=== PATIENT | female | born 1960 | race Caucasian/White ===

== ENCOUNTER 2017-06-05 09:49 | Outpatient (CLI) | payer BC ==
[2017-06-05 10:53] LABS: THYROID STIMULATING HORMONE 0.9 uIU/mL (0.34-5.60)
[2017-06-05 10:55] LABS: FREE T4 (FREE THYROXINE) 0.66 ng/dL (0.58-1.64)
[2017-06-08 08:48] LABS: HEPATITIS C ANTIBODY NON-REACTIVE (NON-REACTIVE)
== END 2017-06-05 09:50 | disposition home or self-care (01) ==
LOC: LAB 09:49
PROVIDERS: ATTEND Naturopath
DX: Z00.01 Encounter for general adult medical examination with abnormal findings (principal); E03.9 Hypothyroidism, unspecified
CPT/HCPCS: 36415; 83615; 84439; 84443; 84481; 86376; 86800; 86803

== ENCOUNTER 2019-03-11 11:52 | Outpatient (CLI) | payer BC ==
[2019-03-11 12:06] LABS: BASOPHILS % (AUTO) 0.7 %; HGB - HEMOGLOBIN 14.8 g/dL (12.0-16.0); LYMPHOCYTES # (AUTO) 1.4 10^3/uL (1.5-3.5); LYMPHOCYTES % (AUTO) 32.7 %; MEAN CORPUSCULAR HGB CONC 33.1 g/dL (32.0-36.0); MEAN CORPUSCULAR VOLUME 93.7 fL (81.0-99.0); MEAN PLATELET VOLUME 10.4 fL (7.9-10.8); MONOCYTES # (AUTO) 0.4 10^3/uL (0.0-1.0); MONOCYTES % (AUTO) 10.2 %; NEUTROPHILS # (AUTO) 2.3 10^3/uL (1.5-6.6); NEUTROPHILS % (AUTO) 55.2 %; PLT - PLATELET COUNT 269 10^3/uL (130-450); RED BLOOD COUNT 4.77 10^6/uL (4.20-5.40); RED CELL DISTRIBUTION WIDTH 11.4 % (12.0-15.0); WHITE BLOOD COUNT 4.1 x10^3/uL (4.8-10.8)
[2019-03-11 12:19] LABS: ALBUMIN 4.8 g/dL (3.2-5.5); ALBUMIN/GLOBULIN RATIO 1.8 (1.0-2.2); CALCIUM 9.7 mg/dL (8.5-10.3); CREATININE 0.6 mg/dL (0.4-1.0); TOTAL PROTEIN 7.5 g/dL (6.7-8.2)
[2019-03-11 12:36] LABS: THYROID STIMULATING HORMONE < 0.08 uIU/mL (0.34-5.60)
[2019-03-11 12:40] LABS: FREE T4 (FREE THYROXINE) 0.76 ng/dL (0.58-1.64)
== END 2019-03-11 11:53 | disposition home or self-care (01) ==
LOC: LAB 11:52
PROVIDERS: ATTEND Naturopath
DX: E03.9 Hypothyroidism, unspecified (principal)
CPT/HCPCS: 36415; 80053; 84439; 84443; 85025

== ENCOUNTER 2019-04-21 10:11 | Outpatient (CLI) | payer BC ==
[2019-04-21 11:03] LABS: HB2 TOTAL 14.4 g/dL; HEMOGLOBIN A1C 0.49 g/dL; HEMOGLOBIN A1C % 5.3 % (4.6-6.2)
[2019-04-21 11:04] LABS: CHOL/HDL RATIO 4.6 (<4.4); CHOLESTEROL 238 mg/dL; HDL CHOLESTEROL 52 mg/dL; LDL CHOLESTEROL,CALCULATED 170 mg/dL; LDL/HDL RATIO 3.3 (<4.4); VLDL CHOLESTEROL 16 mg/dL
[2019-04-21 11:15] LABS: THYROID STIMULATING HORMONE < 0.08 uIU/mL (0.34-5.60)
[2019-04-21 11:20] LABS: FERRITIN 46.5 ng/mL (11.0-306.8)
== END 2019-04-21 10:12 | disposition home or self-care (01) ==
LOC: LAB 10:11
DX: E03.9 Hypothyroidism, unspecified (principal); E78.00 Pure hypercholesterolemia, unspecified; R73.9 Hyperglycemia, unspecified
CPT/HCPCS: 36415; 80061; 82728; 83036; 83721; 84443; 84481; 86376

== ENCOUNTER 2019-05-26 08:47 | Outpatient (CLI) | payer BC | END 2019-05-26 08:48 | disposition home or self-care (01) | LOC: LAB 08:47 | PROVIDERS: ATTEND Naturopath | DX: E03.9 Hypothyroidism, unspecified (principal) | CPT/HCPCS: 36415; 82533; 82627; 84443 ==

== ENCOUNTER 2019-08-25 08:53 | Outpatient (CLI) | payer BC ==
[2019-08-25 09:27] LABS: ALBUMIN 4.7 g/dL (3.2-5.5); ALBUMIN/GLOBULIN RATIO 2.1 (1.0-2.2); ALKALINE PHOSPHATASE 64 IU/L (42-121); ALT ALANINE AMINOTRANSFERASE 20 IU/L (10-60); AST ASPARTATE AMINOTRANSFERASE 27 IU/L (10-42); BILIRUBIN,TOTAL 0.6 mg/dL (0.2-1.0); BUN - BLOOD UREA NITROGEN 10 mg/dL (6-20); CALCIUM 9.2 mg/dL (8.5-10.3); CARBON DIOXIDE - CO2 28 mmol/L (21-32); CHLORIDE 102 mmol/L (101-111); CHOLESTEROL 269 mg/dL; CREATININE 0.7 mg/dL (0.4-1.0); GLUCOSE 99 mg/dL (70-100); GLUCOSE,FASTING 99 mg/dL (70-100); HDL CHOLESTEROL 54 mg/dL; LDL CHOLESTEROL,CALCULATED 204 mg/dL; LDL/HDL RATIO 3.8 (<4.4); SODIUM 139 mmol/L (135-145); TOTAL PROTEIN 6.9 g/dL (6.7-8.2); VLDL CHOLESTEROL 11 mg/dL
[2019-08-25 10:13] LABS: THYROID STIMULATING HORMONE 1.14 uIU/mL (0.34-5.60)
[2019-08-25 10:14] LABS: FREE T3 3.02 pg/mL (2.5-3.9)
[2019-08-25 10:15] LABS: FREE T4 (FREE THYROXINE) 0.63 ng/dL (0.58-1.64)
== END 2019-08-25 08:54 | disposition home or self-care (01) ==
LOC: LAB 08:53
PROVIDERS: ATTEND Naturopath
DX: E03.9 Hypothyroidism, unspecified (principal); R73.9 Hyperglycemia, unspecified; E78.5 Hyperlipidemia, unspecified
CPT/HCPCS: 36415; 80053; 80061; 82947; 83721; 84439; 84443; 84481

== ENCOUNTER 2019-09-22 09:02 | Outpatient (CLI) | payer BC | END 2019-09-22 09:03 | disposition home or self-care (01) | LOC: LAB 09:02 | DX: E78.5 Hyperlipidemia, unspecified (principal); E03.9 Hypothyroidism, unspecified | CPT/HCPCS: 36415; 84443; 86141 ==

== ENCOUNTER 2019-12-29 12:44 | Outpatient (CLI) | payer BC ==
--- NOTE | 2019-12-29 15:56 | XRAY Report ---
PROCEDURE: Hip w/Pelvis 2-3V LT INDICATIONS: PAIN IN LT HIP TECHNIQUE: AP pelvis with lateral view(s) of the left hip(s). COMPARISON: None. FINDINGS: Bones: No fractures or dislocations. Asymmetric moderate superior joint space loss in the left hip compared to the right. There is increased subcortical sclerosis, cystic changes, and mild marginal sp ur formation. There is also moderate degenerative disc disease incidentally noted at the L4-5 level. Pelvic ring appears intact. No suspicious bony lesions. Soft tissues: The visualized bowel gas pattern is normal. No suspicious soft tissue calcifications. IMPRESSION: 1. Moderate, asymmetric left hip degeneration. 2. Lower lumbar disc degeneration. Reviewed by: Carolyn Sol MD on 12/29/2019 3:55 PM PDT Approved by: Carolyn Sol MD on 12/29/2019 3:55 PM PDT Station ID: [id number]
== END 2019-12-29 12:45 | disposition home or self-care (01) ==
LOC: DI 12:44
PROVIDERS: ATTEND Naturopath
DX: M16.12 Unilateral primary osteoarthritis, left hip (principal); M51.36 Other intervertebral disc degeneration, lumbar region

== ENCOUNTER 2020-08-24 07:50 | Outpatient (CLI) | payer BC ==
--- NOTE | 2020-08-24 20:15 | Ultrasound Report ---
PROCEDURE: Abdomen Complete INDICATIONS: ABD PAIN (RIGHT MID ABD) TECHNIQUE: Real-time scanning was performed of the abdominal and retroperitoneal organs, with image documentatio n. COMPARISON: None. FINDINGS: Liver: The liver demonstrates mildly increased size. The liver demonstrates mildly increased echogen icity, which limits ultrasound sensitivity for detection of masses. Gallbladder: No gallstones or significant sludge can be seen. The gallbladder wall does not appear th ickened. There is no specific pericholecystic fluid. The sonographic Emmanuel's sign is negative. Biliary ducts: Intrahepatic bile ducts are non-dilated. Extrahepatic bile duct caliber measures 4 m m. Normal is 6-7 mm or less in diameter, or 10 mm or less post-cholecystectomy. Pancreas: Visualized portions of the pancreas are sonographically normal. Spleen: Spleen is normal in size and homogeneous in echotexture. Kidneys: Kidneys are normal in size and echotexture. Right kidney measures 11.2 cm long; left kidne y measures 10 cm long. No hydronephrosis or nephrolithiasis. No solid masses. Aorta: Visualized aorta is normal in caliber at less than 3 cm. Iliacs: Proximal common iliac arteries are normal in caliber at less than 2.5 cm. IVC: Intrahepatic inferior vena cava is patent. Miscellaneous: No free abdominal fluid. IMPRESSION: No imaging explanation is found for the patient's presenting symptoms. The gallbladder demonstrates a normal sonographic appearance. No biliary dilatation is seen. Increased liver echogenicity is seen. This is nonspecific, yet it is most commonly attributed to fatt y infiltration. Reviewed by: Rodger Cantrell MD on 08/24/2020 7:14 PM JOSE Approved by: Rodger Cantrell MD on 08/24/2020 7:14 PM JOSE Station ID: [id number]
== END 2020-08-24 07:51 | disposition home or self-care (01) ==
LOC: DI 07:50
PROVIDERS: ATTEND Internal Medicine Gastroenterology
DX: R10.9 Unspecified abdominal pain (principal)

== ENCOUNTER 2020-11-01 11:44 | Outpatient (CLI) | payer BC | END 2020-11-01 11:45 | disposition home or self-care (01) | LOC: LAB 11:44 | PROVIDERS: ATTEND Physician Assistant | DX: E83.52 Hypercalcemia (principal) | CPT/HCPCS: 36415; 82306; 83970 ==

== ENCOUNTER 2020-11-08 10:42 | Outpatient (CLI) | payer BC | END 2020-11-08 10:43 | disposition home or self-care (01) | LOC: LAB 10:42 | PROVIDERS: ATTEND Physician Assistant | DX: E83.52 Hypercalcemia (principal) | CPT/HCPCS: 36415; 82310 ==

== ENCOUNTER 2021-08-22 11:23 | Outpatient (CLI) | payer BC ==
--- NOTE | 2021-08-22 13:23 | XRAY Report ---
PROCEDURE: Hip w/Pelvis 2-3V LT INDICATIONS: PAIN IN LEFT HIP TECHNIQUE: AP pelvis with lateral view(s) of the left hip(s). COMPARISON: None. FINDINGS: Bones: No fractures or dislocations. Severe left hip joint space narrowing, large collar osteophytes , and subchondral cystic changes noted. These findings have markedly increased in extent when compare d with the plain film dated 12/29/2019. Soft tissues: The visualized bowel gas pattern is normal. No suspicious soft tissue calcifications. IMPRESSION: Severe left hip osteoarthritis, markedly increased in extent when compared with the stud y from 12/29/2019. Reviewed by: Paty Roa MD on 08/22/2021 1:21 PM PDT Approved by: Paty Roa MD on 08/22/2021 1:21 PM PDT Station ID: [id number]
== END 2021-08-22 11:24 | disposition home or self-care (01) ==
LOC: DI 11:23
PROVIDERS: ATTEND Physician Assistant
DX: M16.12 Unilateral primary osteoarthritis, left hip (principal)